=== PATIENT | female | born 1990 | race African-American/Black ===

== ENCOUNTER 2019-08-05 06:39 | Emergency (ER) | payer MEDICAID ==
[~2019-08-05] VITALS: Ht 165.1 cm; Wt 86.2 kg
--- NOTE | 2019-08-05 06:42 | NUR ---
ED Nurse Note: Pt brought in by RA 826 from home pt c/o10/10 pain since 2pm yesterday, N/V x3 episodes. pt has hx of fibroids and cysts, denies spotting at this time. Pt is A&Ox4,VSS, pt placed on monitor worker
[2019-08-05 06:46] VITALS: BP 142/90
--- NOTE | 2019-08-05 06:56 | NUR ---
ED Nurse Note: Blood and urine sent to lab
[2019-08-05] MEDS ORDERED: Morphine Sulfate 4mg/ml Inj (IV USE ONLY) IVP ONE (07:00)
--- NOTE | 2019-08-05 07:01 | Emergency Room Report ---
History of Present Illness General Chief Complaint: Abdominal Pain Source: Patient Present Illness HPI 28-year-old female presents ED for evaluation. Brought in by EMS from home for abdominal pain. Pain started yesterday. Sharp, cramping, 8 out of 10, nonradiating. Notes multiple episodes of nausea and vomiting. Denies any diarrhea. Denies any vaginal bleeding or discharge. States she has been having this similar pain for the last few months. Told that she has fibroids. Told her she had an ovarian cyst on last ER visit. Currently awaiting referral to [facility]. Denies fevers or chills. No other aggravating relieving factors. Denies any other associated symptoms Allergies: Coded Allergies: No Known Allergies (Unverified , 08/05/19) COVID-19 Screening Contact w/high risk pt: No Recent Travel to affected area: No Experienced COVID-19 symptoms?: No COVID-19 Testing performed EXPANDED FUNCTION DENTAL ASSISTANT: No Patient History Past Medical History: other (fibroids) Past Surgical History: none Pertinent Family History: none Social History: Denies: smoking, alcohol use, drug use Now: No Immunizations: UTD Reviewed Nursing Documentation: PMH: Agreed; PSxH: Agreed Review of Systems All Other Systems: negative except mentioned in HPI Physical Exam Vital Signs Date Time Temp Pulse Resp B/P (MAP) Pulse Ox O2 Delivery O2 Flow Rate FiO2 08/05/19 06:34 97.9 86 18 142/90 (107) 100 Room Air Sp02 EP Interpretation: reviewed, normal General Appearance: alert, GCS 15, non-toxic, mild distress, obese Head: normocephalic, atraumatic Eyes: bilateral eye normal inspection, bilateral eye PERRL ENT: hearing grossly normal, normal pharynx, no angioedema, normal voice Neck: full range of motion, supple/symm/no masses Respiratory: chest non-tender, lungs clear, normal breath sounds, speaking full sentences Cardiovascular #1: regular rate, rhythm, no edema Cardiovascular #2: 2+ carotid (R), 2+ carotid (L), 2+ radial (R), 2+ radial (L) , 2+ dorsalis pedis (R), 2+ dorsalis pedis (L) Gastrointestinal: normal bowel sounds, soft, non-distended, no guarding, no rebound, tenderness (suprapubic) Rectal: deferred Genitourinary: normal inspection, no CVA tenderness Musculoskeletal: back normal, normal range of motion, gait/station normal, non- tender Neurologic: alert, motor strength/tone normal, oriented x3, sensory intact, responsive, speech normal Psychiatric: judgement/insight normal, memory normal, mood/affect normal, no suicidal/homicidal ideation Reflexes: 3+ bicep (R), 3+ bicep (L), 3+ tricep (R), 3+ tricep (L), 3+ knee (R) , 3+ knee (L) Skin: no rash Lymphatic: no adenopathy Medical Decision Making Diagnostic Impression: Primary Impression: Ovarian cyst Qualified Codes: N83.201 - Unspecified ovarian cyst, right side Additional Impression: Fibroids ER Course Hospital Course 28-year-old female presents to ED complaining of lower abdominal pain Differential diagnoses include: gastrits, gastroenterits, ectopic , ovarian torsion/cyst, UTI Clinical course Patient placed on stretcher in ED. After initial history and physical I ordered labs, IV fluids and pain meds and pelvic ultrasound. Labs-no leukocytosis, electrolytes okay, beta hCG negative, UA negative Pelvic ultrasound- left sided fibroid, R ovarian cyst Discussed findings with the patient. On reassessment pain improved. Will discharge home. Will provide women's health referrals. Safe for discharge for close outpatient follow-up. Diagnosis - fibroids, ovarian cyst Stable and discharged to home with Rx MOtrin, zofran. Followup with PMD/OB/ DIRECTOR [place]. Return to ED if symptoms recur or worsen Labs Test 08/05/19 06:50 White Blood Count 9.0 K/UL (4.8-10.8) Red Blood Count 4.83 M/UL (4.20-5.40) Hemoglobin 13.6 G/DL (12.0-16.0) Hematocrit 40.0 % (37.0-47.0) Mean Corpuscular Volume 83 FL (80-99) Mean Corpuscular Hemoglobin 28.2 PG (27.0-31.0) Mean Corpuscular Hemoglobin Concent 34.1 G/DL (32.0-36.0) Red Cell Distribution Width 12.4 % (11.6-14.8) Platelet Count 344 K/UL (150-450) Mean Platelet Volume 6.2 FL (6.5-10.1) Neutrophils (%) (Auto) 61.3 % (45.0-75.0) Lymphocytes (%) (Auto) 28.7 % (20.0-45.0) Monocytes (%) (Auto) 7.9 % (1.0-10.0) Eosinophils (%) (Auto) 0.7 % (0.0-3.0) Basophils (%) (Auto) 1.4 % (0.0-2.0) Urine Color Pale yellow Urine Appearance Clear Urine pH 5 (4.5-8.0) Urine Specific [place] 1.020 (1.005-1.035) Urine Protein 1+ (NEGATIVE) Urine Glucose (UA) Negative (NEGATIVE) Urine Ketones Negative (NEGATIVE) Urine Blood Negative (NEGATIVE) Urine Nitrite Negative (NEGATIVE) Urine Bilirubin Negative (NEGATIVE) Urine Urobilinogen Normal MG/DL (0.0-1.0) Urine Leukocyte Esterase Negative (NEGATIVE) Urine RBC 2-4 /HPF (0 - 2) Urine WBC 2-4 /HPF (0 - 2) Urine Squamous Epithelial Cells Many /LPF (NONE/OCC) Urine Bacteria Few /HPF (NONE) Urine HCG, Qualitative Negative (NEGATIVE) Sodium Level 143 MMOL/L (136-145) Potassium Level 3.8 MMOL/L (3.5-5.1) Chloride Level 105 MMOL/L (98-107) Carbon Dioxide Level 30 MMOL/L (21-32) Anion Gap 8 mmol/L (5-15) Blood Urea Nitrogen 5 mg/dL (7-18) Creatinine 0.9 MG/DL (0.55-1.30) Estimat Glomerular Filtration Rate > 60 mL/min (>60) Glucose Level 102 MG/DL (74-106) Calcium Level 9.2 MG/DL (8.5-10.1) Total Bilirubin 0.5 MG/DL (0.2-1.0) Aspartate Amino Transf (AST/SGOT) 15 U/L (15-37) Alanine Aminotransferase (ALT/SGPT) 18 U/L (12-78) Alkaline Phosphatase 60 U/L (46-116) Total Protein 8.5 G/DL (6.4-8.2) Albumin 3.8 G/DL (3.4-5.0) Globulin 4.7 g/dL Albumin/Globulin Ratio 0.8 (1.0-2.7) Lipase 122 U/L (73-393) CT/MRI/US Diagnostic Results CT/MRI/US Diagnostic Results : Imaging Test Ordered: Pelvic US Impression Procedure: US Pelvic Transabdominal EXAM: US Pelvic Transabdominal CLINICAL HISTORY: Abdominal pelvic pain. COMPARISON: None TECHNIQUE: Ultrasound examination of the pelvis includes grayscale images, and color and spectral doppler analysis. FINDINGS: Transabdominal and transvaginal technique utilized. The uterus measures 8.8 x 7.5 x 4.4 cm. Myometrium is heterogeneous. There is a dominant fibroid along the left lateral margin of the uterus estimated at 4 x 2.9 cm. Endometrial stripe is 3 mm. A few small nabothian cysts noted. Right ovary measure 4.7 x 4.3 cm with a simple cyst. Left ovary measures 3 x 2.5 cm. Normal vascular flow seen bilaterally.. There is no free fluid. IMPRESSION: LEFT LATERAL MARGIN UTERINE FIBROID. SIMPLE RIGHT OVARIAN CYST. Last Vital Signs Date Time Temp Pulse Resp B/P (MAP) Pulse Ox O2 Delivery O2 Flow Rate FiO2 08/05/19 06:46 97.9 86 18 142/90 100 Room Air Status: improved Disposition: HOME, SELF-CARE Condition: Stable Scripts Ondansetron Odt* (ZOFRAN ODT*) 4 Mg Tab.rapdis 4 MG BC EVERY 6 HOURS PRN for Nausea & Vomiting, #20 TAB 0 Refills Prov: Car Branch MD 08/05/19 Ibuprofen* (MOTRIN*) 600 Mg Tablet 600 MG ORAL Q8H PRN for FOR PAIN, #30 TAB 0 Refills Prov: Car Branch MD 08/05/19 Referrals: [facility]ERR[facility] (PCP) Car Branch MD August 05, 2019 07:01
--- NOTE | 2019-08-05 07:03 | NUR ---
HAND-OFF: Report given to BRENDA Naqvi.
[2019-08-05 07:20] LABS: ANION GAP 8 mmol/L (5-15); BASOPHILS % (AUTO) 1.4 % (0.0-2.0); BLOOD UREA NITROGEN 5 mg/dL (7-18); CALCIUM 9.2 MG/DL (8.5-10.1); CARBON DIOXIDE 30 MMOL/L (21-32); CHLORIDE 105 MMOL/L (98-107); CREATININE 0.9 MG/DL (0.55-1.30); EOSINOPHILS % (AUTO) 0.7 % (0.0-3.0); HEMOGLOBIN 13.6 G/DL (12.0-16.0); LYMPHOCYTES % (AUTO) 28.7 % (20.0-45.0); MEAN CORPUSCULAR VOLUME 83 FL (80-99); MONOCYTES % (AUTO) 7.9 % (1.0-10.0); NEUTROPHILS % (AUTO) 61.3 % (45.0-75.0); PLATELET COUNT 344 K/UL (150-450); POTASSIUM 3.8 MMOL/L (3.5-5.1); RED BLOOD COUNT 4.83 M/UL (4.20-5.40); RED CELL DISTRIBUTION WIDTH 12.4 % (11.6-14.8); SODIUM 143 MMOL/L (136-145)
--- NOTE | 2019-08-05 07:22 | NUR ---
ED Nurse Note: Received report from BRENDA Amos. Pt lying in bed having abdominal pain. A+Ox4. Respirations even and unlabored on room air. Vitals stable as documented. Pt awaiting US.
[2019-08-05 07:25] LABS: ALANINE AMINOTRANSFERASE 18 U/L (12-78); ALBUMIN 3.8 G/DL (3.4-5.0); ALBUMIN/GLOBULIN RATIO 0.8 (1.0-2.7); ALKALINE PHOSPHATASE 60 U/L (46-116); APPEARANCE,URINE CLEAR; ASPARTATE AMINO TRANSFERASE 15 U/L (15-37); BILIRUBIN, URINE NEGATIVE (NEGATIVE); BILIRUBIN,TOTAL 0.5 MG/DL (0.2-1.0); COLOR,URINE PALE YELLOW; GLUCOSE, URINE (UA) NEGATIVE (NEGATIVE); KETONES,URINE NEGATIVE (NEGATIVE); LEUKOCYTE ESTERASE ,URINE NEGATIVE (NEGATIVE); NITRITE,URINE NEGATIVE (NEGATIVE); PH,URINE 5 (4.5-8.0); PROTEIN,URINE 1+ (NEGATIVE); UROBILINOGEN,URINE NORMAL MG/DL (0.0-1.0)
--- NOTE | 2019-08-05 08:42 | Diagnostic Imaging Report ---
EXAM: US Pelvic Transabdominal CLINICAL HISTORY: Abdominal pelvic pain. COMPARISON: None TECHNIQUE: Ultrasound examination of the pelvis includes grayscale images, and color and spectral doppler analysis. FINDINGS: Transabdominal and transvaginal technique utilized. The uterus measures 8.8 x 7.5 x 4.4 cm. Myometrium is heterogeneous. There is a dominant fibroid along the left lateral margin of the uterus estimated at 4 x 2.9 cm. Endometrial stripe is 3 mm. A few small nabothian cysts noted. Right ovary measure 4.7 x 4.3 cm with a simple cyst. Left ovary measures 3 x 2.5 cm. Normal vascular flow seen bilaterally.. There is no free fluid. IMPRESSION: LEFT LATERAL MARGIN UTERINE FIBROID. SIMPLE RIGHT OVARIAN CYST.
[2019-08-05] MEDS ORDERED: ONDANSETRON ODT4 MG BC (09:16)
[2019-08-05] MEDS ORDERED: IBUPROFEN600 M1 ORAL (09:16)
[2019-08-05 09:22] VITALS: BP 146/88
--- NOTE | 2019-08-05 09:22 | NUR ---
ER DISCHARGE NOTE: Patient is cleared to be discharged per ERMD, pt is aox4, on room air, with stable vital signs. pt was given dc and prescription instructions, pt was able to verbalize understanding, pt id band and iv site removed without complications. pt is able to ambulate with steady gait. pt took all belongings.
== END 2019-08-05 09:22 | disposition home or self-care (01) ==
LOC: EDBD 06:39 → EMR 06:50
DX: N83.201 Unspecified ovarian cyst, right side (principal); D25.9 Leiomyoma of uterus, unspecified; E66.9 Obesity, unspecified; Z68.31 Body mass index [BMI] 31.0-31.9, adult
CPT/HCPCS: 36415; 76830; 76856; 80053; 81003; 81025; 83690; 85025; 96361; 96374; 96375; J2270; J2405; J7030; S0028; Z7502; 99284

== ENCOUNTER 2019-08-07 03:58 | Emergency (ER) | payer MEDICAID ==
[~2019-08-07] VITALS: Ht 170.2 cm; Wt 136.1 kg
[~2019-08-07 03:58] MED LIST: IBUPROFEN600 M1 ORAL; ONDANSETRON ODT4 MG BC
[2019-08-07 04:15] LABS: BASOPHILS % (AUTO) 0.7 % (0.0-2.0); HEMATOCRIT 43.6 % (37.0-47.0); HEMOGLOBIN 14.9 G/DL (12.0-16.0); LYMPHOCYTES % (AUTO) 15.1 % (20.0-45.0); MEAN CORPUSCULAR VOLUME 82 FL (80-99); MONOCYTES % (AUTO) 4.2 % (1.0-10.0); NEUTROPHILS % (AUTO) 80.1 % (45.0-75.0); PLATELET COUNT 368 K/UL (150-450); RED BLOOD COUNT 5.31 M/UL (4.20-5.40); RED CELL DISTRIBUTION WIDTH 12.4 % (11.6-14.8); WHITE BLOOD COUNT 13.3 K/UL (4.8-10.8)
[2019-08-07] MEDS ORDERED: DiphenhydrAMINE 50mg/ml Inj IVP ONE (04:15)
[2019-08-07] MEDS ORDERED: Morphine Sulfate 2mg/ml Inj(IV/IM USE ONLY) IVP ONE ×2 (04:15→06:15)
[2019-08-07] MEDS ORDERED: Metoclopramide 10mg/2ml Inj IVP ONE ×2 (04:15→06:00)
[2019-08-07] MEDS ORDERED: Ketorolac 30mg Inj IV ONE (04:15)
[2019-08-07 04:25] LABS: ANION GAP 15 mmol/L (5-15); BLOOD UREA NITROGEN 9 mg/dL (7-18); CALCIUM 9.5 MG/DL (8.5-10.1); CARBON DIOXIDE 25 MMOL/L (21-32); CHLORIDE 98 MMOL/L (98-107); POTASSIUM 3.2 MMOL/L (3.5-5.1); SODIUM 137 MMOL/L (136-145)
[2019-08-07 04:27] LABS: INR 1.1 (0.9-1.1)
[2019-08-07 04:30] LABS: ALANINE AMINOTRANSFERASE 18 U/L (12-78); ALBUMIN 4.2 G/DL (3.4-5.0); ALBUMIN/GLOBULIN RATIO 0.9 (1.0-2.7); ALKALINE PHOSPHATASE 74 U/L (46-116); ASPARTATE AMINO TRANSFERASE 17 U/L (15-37); BILIRUBIN,TOTAL 0.6 MG/DL (0.2-1.0)
--- NOTE | 2019-08-07 04:30 | Emergency Room Report ---
History of Present Illness General Chief Complaint: Abdominal Pain Source: Patient, EMS Present Illness HPI Patient presents via EMS with abdominal pain. She was seen a few days ago for the same complaint. She has a diagnosis of fibroids. Her last period was either the 10th of the of this month and normal for her. She is not complaining about increased bleeding at this time but she has pain. She feels feverish without documented tactile temperature. She was vomiting yesterday and unable to keep down pain medication. She been taking ibuprofen and yesterday she took some Tylenol compound but made her feel nauseated. She has mild dysuria at this time. She was seen by her SENIOR ELECTRONICS DESIGN ENGINEER and given a appointment for surgery however this was canceled. She is trying to take care of her 4-year -old at home but needed to come in because the pain was out of control tonight. She is not been eating very well and not been taking fluids in well. She states her blood pressure has been out of control. No sore throat, chest pain, palpitations, diarrhea, shortness of breath, joint pain, rashes, depression, anxiety, visual changes, dizziness, headache. Ultrasound done 08/04: FINDINGS: Transabdominal and transvaginal technique utilized. The uterus measures 8.8 x 7.5 x 4.4 cm. Myometrium is heterogeneous. There is a dominant fibroid along the left lateral margin of the uterus estimated at 4 x 2.9 cm. Endometrial stripe is 3 mm. A few small nabothian cysts noted. Right ovary measure 4.7 x 4.3 cm with a simple cyst. Left ovary measures 3 x 2.5 cm. Normal vascular flow seen bilaterally.. There is no free fluid. IMPRESSION: LEFT LATERAL MARGIN UTERINE FIBROID. SIMPLE RIGHT OVARIAN CYST. Allergies: Coded Allergies: No Known Allergies (Unverified , 08/05/19) COVID-19 Screening Contact w/high risk pt: No Recent Travel to affected area: No Experienced COVID-19 symptoms?: No COVID-19 Testing performed RAILCAR BRAKE OPERATOR: No Patient History Past Medical History: see triage record, old chart reviewed Social History: Denies: smoking Social History Narrative 6 yo at home Now: No Reviewed Nursing Documentation: PMH: Agreed; PSxH: Agreed Review of Systems All Other Systems: negative except mentioned in HPI Physical Exam Vital Signs Date Time Temp Pulse Resp B/P (MAP) Pulse Ox O2 Delivery O2 Flow Rate FiO2 08/07/19 03:59 98.1 92 18 174/100 (124) 92 Room Air General Appearance: GCS 15, non-toxic, mild distress, obese Head: normocephalic, atraumatic Eyes: bilateral eye normal inspection, bilateral eye PERRL, bilateral eye EOMI ENT: moist mucus membranes Neck: supple Respiratory: normal inspection Cardiovascular #1: regular rate, rhythm, no edema Cardiovascular #2: 2+ radial (R) Gastrointestinal: no guarding, no rebound, tenderness - suprapubic, overweight Genitourinary: no CVA tenderness, deferred - as recent exam by Drafter Geological Musculoskeletal: back normal, normal range of motion, gait/station normal Neurologic: oriented x3, cerebellar normal, speech normal, grossly normal Psychiatric: anxious - in pain Skin: no rash, warm/dry, other - no pallor Medical Decision Making Diagnostic Impression: Primary Impression: Fibroids Additional Impression: Labile hypertension ER Course Patient presents with suprapubic pain with known history of fibroids. Differential includes fibroid, UTI, appendicitis amongst others. Patient evaluated with labs. Patient treated with IV hydration and Reglan, Benadryl and Toradol along with a small dose of morphine. Pain improved. Still nausea. Slight leukocytosis. Labs otherwise unremarkable. BP higher. (Patient states doctor noted higher blood pressure and consider medications but no medications have been started.) Zofran tx. Await UA. Patient again in distress c/o nausea and pain. Morphine repeated. UA clear. Pain and nausea resolved. Blood pressure normal. Discussed treatment plan with patient. No emergent condition at this time. Patient stable for outpatient observation and treatment. Laboratory Tests Test 08/07/19 04:02 08/07/19 05:33 White Blood Count 13.3 K/UL (4.8-10.8) H Red Blood Count 5.31 M/UL (4.20-5.40) Hemoglobin 14.9 G/DL (12.0-16.0) Hematocrit 43.6 % (37.0-47.0) Mean Corpuscular Volume 82 FL (80-99) Mean Corpuscular Hemoglobin 28.0 PG (27.0-31.0) Mean Corpuscular Hemoglobin Concent 34.1 G/DL (32.0-36.0) Red Cell Distribution Width 12.4 % (11.6-14.8) Platelet Count 368 K/UL (150-450) Mean Platelet Volume 6.4 FL (6.5-10.1) L Neutrophils (%) (Auto) 80.1 % (45.0-75.0) H Lymphocytes (%) (Auto) 15.1 % (20.0-45.0) L Monocytes (%) (Auto) 4.2 % (1.0-10.0) Eosinophils (%) (Auto) 0.0 % (0.0-3.0) Basophils (%) (Auto) 0.7 % (0.0-2.0) Prothrombin Time 11.9 SEC (9.30-11.50) H Prothrombin Time INR 1.1 (0.9-1.1) Activated Partial Thromboplast Time 26 SEC (23-33) Sodium Level 137 MMOL/L (136-145) Potassium Level 3.2 MMOL/L (3.5-5.1) L Chloride Level 98 MMOL/L (98-107) Carbon Dioxide Level 25 MMOL/L (21-32) Anion Gap 15 mmol/L (5-15) Blood Urea Nitrogen 9 mg/dL (7-18) Creatinine 1.0 MG/DL (0.55-1.30) Estimated Glomerular Filtration Rate > 60 mL/min (>60) Glucose Level 138 MG/DL (74-106) H Calcium Level 9.5 MG/DL (8.5-10.1) Total Bilirubin 0.6 MG/DL (0.2-1.0) Aspartate Amino Transferase (AST) 17 U/L (15-37) Alanine Aminotransferase (ALT) 18 U/L (12-78) Alkaline Phosphatase 74 U/L (46-116) Total Protein 9.0 G/DL (6.4-8.2) H Albumin 4.2 G/DL (3.4-5.0) Globulin 4.8 g/dL Albumin/Globulin Ratio 0.9 (1.0-2.7) L Lipase 269 U/L (73-393) Human Chorionic Gonadotropin, Qual Negative (NEGATIVE) Urine Color Pale yellow Urine Appearance Clear Urine pH 6 (4.5-8.0) Urine Specific [place] 1.015 (1.005-1.035) Urine Protein 2+ (NEGATIVE) H Urine Glucose (UA) Negative (NEGATIVE) Urine Ketones 4+ (NEGATIVE) H Urine Blood Negative (NEGATIVE) Urine Nitrite Negative (NEGATIVE) Urine Bilirubin Negative (NEGATIVE) Urine Urobilinogen Normal MG/DL (0.0-1.0) Urine Leukocyte Esterase 1+ (NEGATIVE) H Urine RBC 0-2 /HPF (0 - 2) Urine WBC 0-2 /HPF (0 - 2) Urine Squamous Epithelial Cells Moderate /LPF (NONE/OCC) H Urine Bacteria Few /HPF (NONE) Rhythm Strip Diag. Results EP Interpretation: yes Rhythm: no PVC's, no ectopy, other - Variable tachycardia CT/MRI/US Diagnostic Results CT/MRI/US Diagnostic Results : Imaging Test Ordered: Pelvic ultrasound reviewed from August 04 Impression See reconsults recorded in history Last Vital Signs Date Time Temp Pulse Resp B/P (MAP) Pulse Ox O2 Delivery O2 Flow Rate FiO2 08/07/19 06:39 98.1 93 16 129/77 100 Room Air Status: improved Disposition: HOME, SELF-CARE Condition: Improved Scripts Ondansetron Odt* (ZOFRAN ODT*) 4 Mg Tab.rapdis 4 MG BC EVERY 8 HOURS PRN for Nausea & Vomiting, #10 TAB 1 Refill Prov: Mango Lindo MD 08/07/19 Tramadol Hcl* (ULTRAM*) 50 Mg Tablet 50 MG ORAL Q6H PRN for For Pain, #8 TAB 0 Refills Prov: Mango Lindo MD 08/07/19 Acetaminophen (Tylenol) 325 Mg Tablet 650 MG ORAL Q6H PRN for Prn Pain/Headache/Temp > 101, #20 TAB 0 Refills Prov: Mango Lindo MD 08/07/19 Referrals: [facility] (PCP) Mango Lindo MD August 07, 2019 04:30
[2019-08-07 04:34] VITALS: BP 190/119
[2019-08-07 05:17] VITALS: BP 194/117
[2019-08-07] MEDS ORDERED: TRAMADOL HCL50 MG ORAL (05:31)
[2019-08-07] MEDS ORDERED: ONDANSETRON ODT4 MG BC (05:31)
[2019-08-07] MEDS ORDERED: TYLENOL325 MG ORAL (05:31)
[2019-08-07 05:41] LABS: APPEARANCE,URINE CLEAR; BILIRUBIN, URINE NEGATIVE (NEGATIVE); COLOR,URINE PALE YELLOW; GLUCOSE, URINE (UA) NEGATIVE (NEGATIVE); KETONES,URINE 4+ (NEGATIVE); LEUKOCYTE ESTERASE ,URINE 1+ (NEGATIVE); NITRITE,URINE NEGATIVE (NEGATIVE); PH,URINE 6 (4.5-8.0); PROTEIN,URINE 2+ (NEGATIVE); UROBILINOGEN,URINE NORMAL MG/DL (0.0-1.0)
[2019-08-07] MEDS ORDERED: Morphine Sulfate 2mg/ml Inj(IV/IM USE ONLY) ONE (06:05)
[2019-08-07 06:12] VITALS: BP 172/89
[2019-08-07 06:34] VITALS: BP 129/77
[2019-08-07 06:39] VITALS: BP 129/77
== END 2019-08-07 06:39 | disposition home or self-care (01) ==
LOC: EDBD 03:58 → EMR 04:09
DX: D25.9 Leiomyoma of uterus, unspecified (principal); N83.291 Other ovarian cyst, right side; R03.0 Elevated blood-pressure reading, without diagnosis of hypertension
CPT/HCPCS: 36415; 80053; 81003; 83690; 84703; 85025; 85610; 85730; 96361; 96374; 96375; 96376; J1200; J1885; J2270; J2405; J2765; J7030; Z7502; 99284

== ENCOUNTER 2019-11-12 07:40 | Emergency (ER) | payer MEDICAID ==
[~2019-11-12] VITALS: Ht 167.6 cm; Wt 148.3 kg
--- NOTE | 2019-11-12 07:38 | NUR ---
ED Nurse Note: Pt brought in by ambulance from home c/o abd pain with nausea that has become increasingly worse over two days. Pt denies vomiting/diarrhea. Pt has hx of endometriosis, currently on her menses. Respirations even and unlabored on room air. HR elevated @ 105. BP 150s systolic. All other vitals stable as documented. A+Ox4, crying d/t pain.
--- NOTE | 2019-11-12 07:39 | Emergency Room Report ---
History of Present Illness General Source: Patient, EMS Present Illness HPI Patient is a 29-year-old female brought in by EMS after increased abdominal pain. Prior history of ovarian cyst as well as endometriosis. Patient states she is currently on her menses. Patient had some worsening pain today. Had previous emergency department visits and had previous ultrasound imaging which showed simple ovarian cyst as well as myometrial irregularity and fibroid uterus. Allergies: Coded Allergies: No Known Allergies (Unverified , 08/05/19) Patient History Reviewed Nursing Documentation: PMH: Agreed; PSxH: Agreed Physical Exam Sp02 EP Interpretation: reviewed, normal General Appearance: normal inspection, well appearing, no apparent distress, alert, GCS 15, obese Head: atraumatic ENT: normal ENT inspection, hearing grossly normal, normal voice Neck: normal inspection, full range of motion, supple, no bony tend Respiratory: normal inspection, lungs clear, normal breath sounds, no respiratory distress, no retraction, no wheezing Cardiovascular #1: regular rate, rhythm, no edema Gastrointestinal: normal inspection, normal bowel sounds, non tender, soft, no guarding, no hernia Genitourinary: no CVA tenderness Musculoskeletal: normal inspection, back normal, normal range of motion Neurologic: alert, motor strength/tone normal, technical implementation lead III-XII nml as tested, oriented x3, responsive, speech normal, normal inspection Psychiatric: normal inspection, judgement/insight normal, mood/affect normal Medical Decision Making Diagnostic Impression: Primary Impression: Fibroids Additional Impression: Ovarian cyst ER Course Patient presented for left-sided abdominal pain. Differential diagnosis include was not limited to ovarian torsion, ovarian cyst, fibroid degeneration, pelvic inflammatory disease among others. Because of complexity of patient's case laboratory tests and imaging studies were ordered. Patient reports having similar symptoms in the past and is currently on her menses. pelvic ultrasound showed no evidence of free fluid with small right-sided ovarian cyst. Fibroid uterus. Patient given pain medications as well as IV fluids. She appears to be stable for outpatient management. Patient is given prescription for medication for pain. She is advised to follow-up with her ELECTRICAL INSTRUMENTATION TECHNICIAN and patient states that she has an appointment this week. Advised to return if worse. this medical record is generated with [employer] director software. There may be some director discrepancies related to use of this software Labs Test 11/12/19 08:00 11/12/19 08:58 White Blood Count 8.3 K/UL (4.8-10.8) Red Blood Count 4.46 M/UL (4.20-5.40) Hemoglobin 12.4 G/DL (12.0-16.0) Hematocrit 38.9 % (37.0-47.0) Mean Corpuscular Volume 87 FL (80-99) Mean Corpuscular Hemoglobin 27.9 PG (27.0-31.0) Mean Corpuscular Hemoglobin Concent 31.9 G/DL (32.0-36.0) Red Cell Distribution Width 13.5 % (11.6-14.8) Platelet Count 299 K/UL (150-450) Mean Platelet Volume 6.4 FL (6.5-10.1) Neutrophils (%) (Auto) 60.9 % (45.0-75.0) Lymphocytes (%) (Auto) 29.7 % (20.0-45.0) Monocytes (%) (Auto) 6.5 % (1.0-10.0) Eosinophils (%) (Auto) 0.6 % (0.0-3.0) Basophils (%) (Auto) 2.3 % (0.0-2.0) Sodium Level 140 MMOL/L (136-145) Potassium Level 4.0 MMOL/L (3.5-5.1) Chloride Level 105 MMOL/L (98-107) Carbon Dioxide Level 26 MMOL/L (21-32) Anion Gap 9 mmol/L (5-15) Blood Urea Nitrogen 7 mg/dL (7-18) Creatinine 0.8 MG/DL (0.55-1.30) Estimat Glomerular Filtration Rate > 60 mL/min (>60) Glucose Level 94 MG/DL (74-106) Calcium Level 8.6 MG/DL (8.5-10.1) Total Bilirubin 0.3 MG/DL (0.2-1.0) Aspartate Amino Transf (AST/SGOT) 13 U/L (15-37) Alanine Aminotransferase (ALT/SGPT) 12 U/L (12-78) Alkaline Phosphatase 64 U/L (46-116) Total Protein 7.7 G/DL (6.4-8.2) Albumin 3.3 G/DL (3.4-5.0) Globulin 4.4 g/dL Albumin/Globulin Ratio 0.8 (1.0-2.7) Lipase 115 U/L (73-393) Status: improved Disposition: HOME, SELF-CARE Condition: Stable Kris Hampton MD Nov 12, 2019 07:39
[2019-11-12 07:40] VITALS: BP 155/88
[~2019-11-12 07:40] MED LIST changes: +TRAMADOL HCL50 MG ORAL; +TYLENOL325 MG ORAL
[2019-11-12] MEDS ORDERED: Morphine Sulfate 4mg/ml Inj (IV USE ONLY) IVP ONE (07:45)
[2019-11-12] MEDS ORDERED: Ketorolac 30mg Inj IV ONE (07:45)
[2019-11-12] MEDS ORDERED: Metoclopramide 10mg/2ml Inj IVP ONE (07:45)
--- NOTE | 2019-11-12 08:07 | NUR ---
ED Nurse Note: blood sent to lab
--- NOTE | 2019-11-12 08:11 | NUR ---
ED Nurse Note: US @ bedside
[2019-11-12 08:35] LABS: BASOPHILS % (AUTO) 2.3 % (0.0-2.0); EOSINOPHILS % (AUTO) 0.6 % (0.0-3.0); HEMATOCRIT 38.9 % (37.0-47.0); HEMOGLOBIN 12.4 G/DL (12.0-16.0); LYMPHOCYTES % (AUTO) 29.7 % (20.0-45.0); MEAN CORPUSCULAR VOLUME 87 FL (80-99); MONOCYTES % (AUTO) 6.5 % (1.0-10.0); NEUTROPHILS % (AUTO) 60.9 % (45.0-75.0); PLATELET COUNT 299 K/UL (150-450); RED BLOOD COUNT 4.46 M/UL (4.20-5.40); RED CELL DISTRIBUTION WIDTH 13.5 % (11.6-14.8); WHITE BLOOD COUNT 8.3 K/UL (4.8-10.8)
[2019-11-12 08:48] LABS: ANION GAP 9 mmol/L (5-15); BLOOD UREA NITROGEN 7 mg/dL (7-18); CALCIUM 8.6 MG/DL (8.5-10.1); CARBON DIOXIDE 26 MMOL/L (21-32); CHLORIDE 105 MMOL/L (98-107); CREATININE 0.8 MG/DL (0.55-1.30); SODIUM 140 MMOL/L (136-145)
[2019-11-12 08:52] LABS: ALANINE AMINOTRANSFERASE 12 U/L (12-78); ALBUMIN 3.3 G/DL (3.4-5.0); ALBUMIN/GLOBULIN RATIO 0.8 (1.0-2.7); ALKALINE PHOSPHATASE 64 U/L (46-116); ASPARTATE AMINO TRANSFERASE 13 U/L (15-37); BILIRUBIN,TOTAL 0.3 MG/DL (0.2-1.0)
--- NOTE | 2019-11-12 09:01 | NUR ---
ED Nurse urine sent to lab
[2019-11-12 09:18] LABS: APPEARANCE,URINE SLIGHTLY CLOUDY; COLOR,URINE AMBER; PH,URINE 6 (4.5-8.0)
[2019-11-12 09:19] LABS: BILIRUBIN, URINE NEGATIVE (NEGATIVE); GLUCOSE, URINE (UA) NEGATIVE (NEGATIVE); KETONES,URINE NEGATIVE (NEGATIVE); LEUKOCYTE ESTERASE ,URINE 2+ (NEGATIVE); NITRITE,URINE NEGATIVE (NEGATIVE); PROTEIN,URINE 2+ (NEGATIVE); UROBILINOGEN,URINE NORMAL MG/DL (0.0-1.0)
[2019-11-12 09:20] VITALS: BP 149/95
--- NOTE | 2019-11-12 09:24 | Diagnostic Imaging Report ---
EXAM: US Pelvic Transabdominal CLINICAL HISTORY: Abdominal/pelvic pain. Patient is REPORTEDLY not (pending test at time of exam) COMPARISON: 08/05/2019 TECHNIQUE: Ultrasound examination of the pelvis includes grayscale images, and color and spectral doppler analysis. Note that only transabdominal exam was performed. Patient declined/refused endovaginal exam. FINDINGS: Limit evaluation as only transabdominal exam was performed. Patient declined/refused endovaginal exam. Exam is also limited due to patient inability to cooperate with exam positioning. Within these limitations: The uterus measures 8.2 x 7.4 x 4.4 cm/149 mL. Myometrium is heterogeneous with a fibroid noted at the fundus measuring approximately 4 cm. Endometrium measures 3.5 mm in thickness. A simple appearing right ovarian cyst is seen which measures approximately 2 cm. Left ovary is poorly evaluated. Unable to obtain reliable spectral tracing on the ovaries due to patient inability to cooperate with exam positioning. IMPRESSION: Significantly limited exam as only transabdominal scanning was performed and patient reportedly inability to cooperate with exam positioning (reportedly related to pain). Within these limitations: * Heterogeneous myomatous uterus * Simple appearing right ovarian cyst. Unable to obtain spectral/Doppler tracings of the ovaries given exam limitations and therefore cannot reliably assess for the presence or absence of Doppler flow into the ovaries. Please correlate clinically. Consider repeat exam as clinically indicated.
[2019-11-12] MEDS ORDERED: Omnipaque-300 100ml vial INJ PRN (09:45)
[2019-11-12] MEDS ORDERED: Dicyclomine HCl 10mg/5ml oral soln ORAL ONE (09:45)
[2019-11-12] MEDS ORDERED: Morphine Sulfate 2mg/ml Inj(IV/IM USE ONLY) IVP ONE (09:45)
[2019-11-12] MEDS ORDERED: cefTRIAXone 1 GM in NS 55 ML IVPB ONE (10:15)
--- NOTE | 2019-11-12 10:25 | NUR ---
ED Nurse Note: pt sleeping in bed with no signs of distress.
--- NOTE | 2019-11-12 11:17 | Diagnostic Imaging Report ---
Indication: Abdominal and pelvic pain Technique: CT of the abdomen and pelvis utilizing automated exposure control with intravenous contrast. Venous scanning performed. Axial, sagittal and coronal reformats presented. CT dose: Total DLP 1552.4 mGycm; CTDI vol 27.6 mGy Comparison: No prior CT of the abdomen available for comparison Findings: Image lower chest unremarkable. Hepatic contour is smooth. There is some low-attenuation along the falciform ligament suggesting focal fatty infiltration. Otherwise no focal hepatic mass lesion noted on this single phase exam. Portal veins appear patent. There are no CT evident gallstones or pericholecystic inflammatory changes. No biliary ductal dilatation. Spleen, adrenal glands and pancreas unremarkable in appearance. Pancreatic enhancement is uniform. No peripancreatic inflammatory changes or fluid collections. Kidneys enhance symmetrically. There is no urinary tract stone, hydronephrosis or contour deforming renal mass. Apparent bladder wall thickening favored to be related to underdistention. Correlation with urinalysis recommended to exclude cystitis. The uterus is mildly enlarged with heterogeneous and enhancing myometrial masses suggesting fibroids. Largest mass in the left aspect of the myometrium measures approximately 4.4 cm. The endometrium is not well evaluated on CT. There is a low-attenuation right adnexal lesion measuring 2.5 cm suggesting a cyst. Trace fluid is noted in the pelvic cul-de-sac which may be physiologic. No free intraperitoneal air. There is no evidence of small bowel obstruction. The appendix is not definitively visualized however there are no focal inflammatory changes in the right lower quadrant. Abdominal aorta is normal in caliber. There is no pathologically enlarged lymphadenopathy. No acute osseous abnormality. There is a tiny fat-containing umbilical hernia. IMPRESSION: * Heterogeneously enhancing uterine masses suggesting fibroids. Gynecologic follow-up recommended. * 2.5 cm low-attenuation right adnexal lesion most likely representing ovarian cyst. * Trace simple pelvic free fluid noted in the pelvis. This may be physiologic. No evidence of free intraperitoneal air. * Appendix not definitively identified however there are no pericecal inflammatory changes/secondary signs to suggest acute appendicitis. The CT scanner at [facility] is accredited by the [employer] and the scans are performed using protocols designed to limit radiation exposure to as low as reasonably achievable to attain images of sufficient resolution adequate for diagnostic evaluation.
[2019-11-12] MEDS ORDERED: CEPHALEXIN500 MG ORAL (11:19)
[2019-11-12] MEDS ORDERED: NORCO 5-325 TA1 EAC1 ORAL (11:20)
[2019-11-12 11:35] VITALS: BP 145/89
== END 2019-11-12 11:35 | disposition home or self-care (01) ==
LOC: EDBD 07:40 → EMR 07:45
DX: D25.9 Leiomyoma of uterus, unspecified (principal); N85.8 Other specified noninflammatory disorders of uterus
CPT/HCPCS: 36415; 74177; 76856; 80053; 81003; 81025; 83690; 85025; 96365; 96375; 96376; J0696; J1885; J2270; J2765; J7040; Q9965; Z7502; 99284

== ENCOUNTER 2019-11-17 03:33 | Emergency (ER) | payer MEDICAID ==
[~2019-11-17] VITALS: Ht 170.2 cm; Wt 81.6 kg
[~2019-11-17 03:33] MED LIST changes: +CEPHALEXIN500 MG ORAL; +NORCO 5-325 TA1 EAC1 ORAL
--- NOTE | 2019-11-17 03:44 | Emergency Room Report ---
History of Present Illness General Chief Complaint: Abdominal Pain Source: Patient, Medical Record Present Illness HPI This is a 29-year-old female with a history of CVA in the past. She said that she was admitted to [facility] and discharged with a diagnosis of CVA. She did not any medication for. She also has a history of fibroids. Because of her CVA, she is not on control. She presents with chief complaint of pelvic pain. This been ongoing for about 4 days. On and off. She was here 4 to 5 days ago. She had CT scan and ultrasound which showed fibroids and small ovarian cyst. Pain was severe tonight. Is sharp and crampy. 10 out of 10. Localized to the suprapubic area. No fever chills. No nausea no vomiting. Nothing made it better. Nothing made it worse. Similar symptom in the past but worse tonight. Allergies: Coded Allergies: No Known Allergies (Unverified , 08/05/19) COVID-19 Screening Contact w/high risk pt: No Recent Travel to affected area: No Experienced COVID-19 symptoms?: No COVID-19 Testing performed DATA ANALYTICS SPECIALIST: No Patient History Past Medical History: see triage record, old chart reviewed, CVA/TIA Past Surgical History: none Pertinent Family History: none Social History: Denies: smoking Now: No Immunizations: other Reviewed Nursing Documentation: PMH: Agreed; PSxH: Agreed Nursing Documentation-PMH Hx Hypertension: Yes Review of Systems Eye: Denies: eye pain, blurred vision ENT: Denies: ear pain, nose congestion, throat swelling Respiratory: Denies: cough, shortness of breath Cardiovascular: Denies: chest pain, palpitations Gastrointestinal: Denies: abdominal pain, diarrhea, nausea, vomiting Genitourinary: Reports: pain Musculoskeletal: Denies: back pain, joint pain Skin: Denies: rash Neurological: Denies: headache, numbness Endocrine: Denies: increased thirst, increased urine Hematologic/Lymphatic: Denies: easy bruising All Other Systems: negative except mentioned in HPI Physical Exam Vital Signs Date Time Temp Pulse Resp B/P (MAP) Pulse Ox O2 Delivery O2 Flow Rate FiO2 11/17/19 03:30 98.8 114 22 148/84 (105) 98 Room Air Vitals unremarkable Sp02 EP Interpretation: reviewed, normal General Appearance: well appearing, no apparent distress, alert, obese Head: normocephalic, atraumatic Eyes: bilateral eye PERRL, bilateral eye EOMI ENT: hearing grossly normal, normal pharynx Neck: full range of motion, supple, no meningismus Respiratory: chest non-tender, lungs clear, normal breath sounds Cardiovascular #1: regular rate, rhythm, no murmur Gastrointestinal: normal bowel sounds, non tender, no mass, no organomegaly, no bruit, non-distended Musculoskeletal: back normal, normal range of motion, gait/station normal Psychiatric: mood/affect normal Medical Decision Making Diagnostic Impression: Primary Impression: Pelvic pain Additional Impression: Fibroids ER Course Patient presents with pelvic pain. This may be secondary to her fibroids. She said usually get pain during her menstruation. She is finishing off on her menstruation. No evidence of acute abdomen. She felt better now. Will discharge home. Last Vital Signs Date Time Temp Pulse Resp B/P (MAP) Pulse Ox O2 Delivery O2 Flow Rate FiO2 11/17/19 03:30 98.8 114 22 148/84 (105) 98 Room Air Status: improved Disposition: HOME, SELF-CARE Condition: Stable Scripts Ibuprofen* (MOTRIN*) 600 Mg Tablet 600 MG ORAL Q6H PRN for For Pain, #30 TAB 0 Refills Prov: Alexis Taveras MD 11/17/19 Oxycodone Hcl/Acetaminophen 10-325* (OXYCODONE-ACETAMINOPHEN 10-325*) 1 Each Tablet 1 TAB ORAL Q6H PRN for For Pain, #20 TAB 0 Refills Prov: Alexis Taveras MD 11/17/19 Additional Instructions: Stop your antibiotics. Follow-up with your doctor in 7 days. 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 Return if symptoms worsen. Alexis Taveras MD Nov 17, 2019 03:44
--- NOTE | 2019-11-17 03:55 | NUR ---
ED Nurse Note: Pt brought in by ambulance from home c/o 12/26 abdominal pain since sat. Pt denies N/V at this time. Pt was seen on fri for the same symptoms. Pt has a hx of fibroids. PT is A&Ox4, VSS. ERMD at bedside
[2019-11-17 03:56] VITALS: BP 148/84
[2019-11-17] MEDS ORDERED: OXYCODONE-ACET1 EAC5 ORAL (04:17)
[2019-11-17] MEDS ORDERED: IBUPROFEN600 M1 ORAL (04:17)
[2019-11-17 05:20] VITALS: BP 134/80
--- NOTE | 2019-11-17 05:20 | NUR ---
ER DISCHARGE NOTE: Patient is cleared to be discharged per ERMD, pt is aox4, on room air, with stable vital signs. pt was given dc and prescription instructions, pt was able to verbalize understanding, pt id band removed. pt is able to ambulate with steady gait. pt took all belongings.
== END 2019-11-17 05:20 | disposition home or self-care (01) ==
LOC: EDBD 03:33 → EMR 03:46
DX: D25.9 Leiomyoma of uterus, unspecified (principal); R10.2 Pelvic and perineal pain; E66.9 Obesity, unspecified; I10 Essential (primary) hypertension; Z86.73 Personal history of transient ischemic attack (TIA), and cerebral infarction without residual deficits; Z68.28 Body mass index [BMI] 28.0-28.9, adult
CPT/HCPCS: 96372; J1170; Z7502; 99283

== ENCOUNTER 2020-02-14 09:43 | Emergency (ER) | payer MEDICAID ==
[~2020-02-14] VITALS: Ht 167.6 cm; Wt 139.7 kg
[~2020-02-14 09:43] MED LIST changes: +OXYCODONE-ACET1 EAC5 ORAL
[2020-02-14] MEDS ORDERED: Ketorolac 30mg Inj IV ONE (10:00)
[2020-02-14] MEDS ORDERED: Metoclopramide 10mg/2ml Inj IVP ONE (10:00)
[2020-02-14] MEDS ORDERED: DiphenhydrAMINE 50mg/ml Inj IVP ONE (10:00)
[2020-02-14 10:12] VITALS: BP 131/78
[2020-02-14 10:15] LABS: BASOPHILS % (AUTO) 1.3 % (0.0-2.0); HEMATOCRIT 40.2 % (37.0-47.0); LYMPHOCYTES % (AUTO) 35.8 % (20.0-45.0); MEAN CORPUSCULAR VOLUME 87 FL (80-99); MONOCYTES % (AUTO) 11.2 % (1.0-10.0); NEUTROPHILS % (AUTO) 50.7 % (45.0-75.0); PLATELET COUNT 302 K/UL (150-450); RED BLOOD COUNT 4.61 M/UL (4.20-5.40); RED CELL DISTRIBUTION WIDTH 14.5 % (11.6-14.8); WHITE BLOOD COUNT 7.5 K/UL (4.8-10.8)
[2020-02-14 10:20] LABS: APPEARANCE,URINE CLEAR; BILIRUBIN, URINE NEGATIVE (NEGATIVE); COLOR,URINE PALE YELLOW; GLUCOSE, URINE (UA) NEGATIVE (NEGATIVE); KETONES,URINE NEGATIVE (NEGATIVE); LEUKOCYTE ESTERASE ,URINE NEGATIVE (NEGATIVE); NITRITE,URINE NEGATIVE (NEGATIVE); PH,URINE 5 (4.5-8.0); PROTEIN,URINE NEGATIVE (NEGATIVE); UROBILINOGEN,URINE NORMAL MG/DL (0.0-1.0)
[2020-02-14 10:47] LABS: ANION GAP 8 mmol/L (5-15); BLOOD UREA NITROGEN 11 mg/dL (7-18); CALCIUM 8.9 MG/DL (8.5-10.1); CARBON DIOXIDE 26 MMOL/L (21-32); CHLORIDE 103 MMOL/L (98-107); POTASSIUM 4.4 MMOL/L (3.5-5.1); SODIUM 137 MMOL/L (136-145)
[2020-02-14 10:52] LABS: ALANINE AMINOTRANSFERASE 10 U/L (12-78); ALBUMIN 3.8 G/DL (3.4-5.0); ALBUMIN/GLOBULIN RATIO 0.9 (1.0-2.7); ALKALINE PHOSPHATASE 58 U/L (46-116); ASPARTATE AMINO TRANSFERASE 16 U/L (15-37); BILIRUBIN,TOTAL 0.3 MG/DL (0.2-1.0)
--- NOTE | 2020-02-14 11:13 | Diagnostic Imaging Report ---
EXAM: US Pelvis Transabdominal and Transvaginal, Complete CLINICAL HISTORY: ABD PAIN TECHNIQUE: Real-time complete transabdominal and transvaginal pelvic ultrasound with image documentation. Transvaginal imaging was used for better evaluation of the endometrium and adnexa. COMPARISON: Ultrasound pelvis on 11/12/2019 FINDINGS: Uterus: Measures 9.4 x 5.2 x 6.5 cm. Uterine fibroid measuring 3.0 x 3. 9 x 3.6 cm. Endometrium measures 6.4 mm. Right ovary: Measures 3.8 x 4.1 x 3.5. Right ovarian cyst measuring 3. 6 x 2.4 x 3.2 cm. Normal color Doppler flow to the right ovary. Left ovary: Measures 3.1 x 1.9 x 2.0 cm. Normal appearance with normal color Doppler flow. Other: No free fluid. No adnexal mass. IMPRESSION: 1. Uterine fibroid measuring up to 3.9 cm. 2. Right ovarian cyst measuring up to 3.6 cm. No ovarian torsion.
--- NOTE | 2020-02-14 11:50 | Emergency Room Report ---
History of Present Illness General Chief Complaint: Abdominal Pain Source: Patient, EMS Present Illness HPI Patient has recurrent abdominal pain. She is recently switched over to ibuprofen and Pepcid. Last night she took oxycodone half tablet. She has been constipated. Pain is in her lower abdomen. She denies any vaginal discharge or dysuria. Her last menstruation was 3 weeks ago and normal for her. Today she had some nausea and vomiting and called paramedics. The pain has been going on for the last 6 days. She rates the pain 10/10 more in the lower abdomen and fairly constant. It is not lateralizing. It does not radiate. She has been constipated and has been taking Dulcolax. She feels has been poorly effective. The patient was recently treated for PID. This feels like this to her. She has had ultrasounds in the past. Its been sometime. She denies fevers or chills at this time. In addition she has ovarian cysts and fibroids. Status post CVA. Patient denies exposure to Covid positive contacts. No sore throat, chest pain, palpitations, diarrhea, dysuria, shortness of breath, joint pain, rashes, depression, anxiety, visual changes, dizziness, headache. Allergies: Coded Allergies: No Known Allergies (Unverified , 08/05/19) COVID-19 Screening Contact w/high risk pt: No Recent Travel to affected area: No Experienced COVID-19 symptoms?: No COVID-19 Testing performed CHART COLLECTOR: No Patient History Past Medical History: see triage record, CVA/TIA Social History: Denies: smoking, alcohol use, drug use Social History Narrative From home Last Menstrual Period: 3 weeks Now: No Reviewed Nursing Documentation: PMH: Agreed; PSxH: Agreed Nursing Documentation-PMH Past Medical History: No History, Except For Hx Hypertension: Yes Hx Cerebrovascular Accident: Yes Review of Systems All Other Systems: negative except mentioned in HPI Physical Exam Vital Signs Date Time Temp Pulse Resp B/P (MAP) Pulse Ox O2 Delivery O2 Flow Rate FiO2 02/14/20 09:37 97.3 89 18 131/79 (96) 98 Room Air Sp02 EP Interpretation: reviewed, normal General Appearance: well appearing, no apparent distress - Right hand pain, GCS 15 Head: normocephalic Eyes: bilateral eye normal inspection, bilateral eye PERRL, bilateral eye EOMI ENT: moist mucus membranes Neck: supple Respiratory: lungs clear, normal breath sounds Cardiovascular #1: regular rate, rhythm Cardiovascular #2: 2+ radial (R) Gastrointestinal: normal inspection, normal bowel sounds, no mass, non- distended, no guarding, no rebound, tenderness - Lower abdomen but also is fairly diffuse Genitourinary: no CVA tenderness, deferred Musculoskeletal: back normal, normal range of motion, gait/station normal Neurologic: alert, oriented x3, grossly normal Psychiatric: mood/affect normal Skin: no rash, warm/dry Medical Decision Making Diagnostic Impression: Primary Impression: Pelvic pain Additional Impression: Constipation Qualified Codes: K59.03 - Drug induced constipation ER Course Patient presents with lower abdominal pain that is worsened over the last 6 days with nausea and vomiting. Differential includes PID, urinary tract infection, fibroids, ovarian cyst, diverticulitis, renal stone amongst others. Patient evaluated with labs and pelvic ultrasound. Patient treated with IV hydration, Reglan, Benadryl and Toradol. She does not believe she is at this time. If she were we would consider ectopic and threatened miscarriage. Based on the ultrasound exam may be considered. At this time the patient denies discharge and is not febrile. Labs with normal white count. test negative. Ultrasound with fibroids. Patient improved with treatment. Discussed findings and treatment plan with patient. Patient was advised to follow-up with her own primary doctor as well as her CORRESPONDENCE SECTION SUPERVISOR. Patient stable for outpatient observation and treatment. Laboratory Tests Test 02/14/20 10:00 White Blood Count 7.5 K/UL (4.8-10.8) Red Blood Count 4.61 M/UL (4.20-5.40) Hemoglobin 13.0 G/DL (12.0-16.0) Hematocrit 40.2 % (37.0-47.0) Mean Corpuscular Volume 87 FL (80-99) Mean Corpuscular Hemoglobin 28.3 PG (27.0-31.0) Mean Corpuscular Hemoglobin Concent 32.4 G/DL (32.0-36.0) Red Cell Distribution Width 14.5 % (11.6-14.8) Platelet Count 302 K/UL (150-450) Mean Platelet Volume 7.6 FL (6.5-10.1) Neutrophils (%) (Auto) 50.7 % (45.0-75.0) Lymphocytes (%) (Auto) 35.8 % (20.0-45.0) Monocytes (%) (Auto) 11.2 % (1.0-10.0) H Eosinophils (%) (Auto) 1.0 % (0.0-3.0) Basophils (%) (Auto) 1.3 % (0.0-2.0) Prothrombin Time 10.8 SEC (9.30-11.50) Prothrombin Time INR 1.0 (0.9-1.1) Activated Partial Thromboplast Time 26 SEC (23-33) Urine Color Pale yellow Urine Appearance Clear Urine pH 5 (4.5-8.0) Urine Specific [place] 1.020 (1.005-1.035) Urine Protein Negative (NEGATIVE) Urine Glucose (UA) Negative (NEGATIVE) Urine Ketones Negative (NEGATIVE) Urine Blood Negative (NEGATIVE) Urine Nitrite Negative (NEGATIVE) Urine Bilirubin Negative (NEGATIVE) Urine Urobilinogen Normal MG/DL (0.0-1.0) Urine Leukocyte Esterase Negative (NEGATIVE) Urine HCG, Qualitative Negative (NEGATIVE) Sodium Level 137 MMOL/L (136-145) Potassium Level 4.4 MMOL/L (3.5-5.1) Chloride Level 103 MMOL/L (98-107) Carbon Dioxide Level 26 MMOL/L (21-32) Anion Gap 8 mmol/L (5-15) Blood Urea Nitrogen 11 mg/dL (7-18) Creatinine 1.0 MG/DL (0.55-1.30) Estimated Glomerular Filtration Rate > 60 mL/min (>60) Glucose Level 84 MG/DL (74-106) Calcium Level 8.9 MG/DL (8.5-10.1) Total Bilirubin 0.3 MG/DL (0.2-1.0) Aspartate Amino Transferase (AST) 16 U/L (15-37) Alanine Aminotransferase (ALT) 10 U/L (12-78) L Alkaline Phosphatase 58 U/L (46-116) Total Protein 8.1 G/DL (6.4-8.2) Albumin 3.8 G/DL (3.4-5.0) Globulin 4.3 g/dL Albumin/Globulin Ratio 0.9 (1.0-2.7) L Lipase 88 U/L (73-393) Chlamydia trachomatis RNA Pending Neisseria gonorrhoeae RNA Pending CT/MRI/US Diagnostic Results CT/MRI/US Diagnostic Results : Imaging Test Ordered: Pelvic ultrasound Impression 1. Uterine fibroid measuring up to 3.9 cm. 2. Right ovarian cyst measuring up to 3.6 cm. No ovarian torsion. Last Vital Signs Date Time Temp Pulse Resp B/P (MAP) Pulse Ox O2 Delivery O2 Flow Rate FiO2 02/14/20 12:06 98.0 85 18 128/72 98 Room Air Status: improved Disposition: HOME, SELF-CARE Condition: Improved Scripts Acetaminophen (Tylenol) 325 Mg Tablet 650 MG ORAL Q6H PRN for Prn Pain/Headache/Temp > 101, #30 TAB 0 Refills Prov: Mango Lindo MD 02/14/20 Ondansetron Odt* (ZOFRAN ODT*) 4 Mg Tab.rapdis 4 MG BC EVERY 8 HOURS, #10 TAB 0 Refills Prov: Mango Lindo MD 02/14/20 Lactulose (LACTULOSE*) 20 Gm/30 Ml Solution 30 ML ORAL BID PRN for Constipation, #240 ML 0 Refills Prov: Mango Lindo MD 02/14/20 Referrals: [facility],REFERR[facility] (PCP) Mango Lindo MD Feb 14, 2020 11:50
[2020-02-14] MEDS ORDERED: LACTULOSE20 GM/301 ORAL ×2 (11:55)
[2020-02-14] MEDS ORDERED: ONDANSETRON ODT4 MG BC ×2 (11:57)
[2020-02-14 12:00] VITALS: BP 128/72
[2020-02-14] MEDS ORDERED: IBUPROFEN600 M1 ORAL (12:00)
[2020-02-14] MEDS ORDERED: FAMOTIDINE20 MG ORAL (12:00)
[2020-02-14 12:06] VITALS: BP 128/72
[2020-02-14] MEDS ORDERED: TYLENOL325 MG ORAL (12:06)
== END 2020-02-14 12:10 | disposition home or self-care (01) ==
LOC: EDBD 09:43 → EMR 09:58
DX: K59.03 Drug induced constipation (principal); R10.2 Pelvic and perineal pain; I10 Essential (primary) hypertension; D25.9 Leiomyoma of uterus, unspecified; N83.201 Unspecified ovarian cyst, right side; Z86.73 Personal history of transient ischemic attack (TIA), and cerebral infarction without residual deficits
CPT/HCPCS: 36415; 76830; 76856; 80053; 81003; 81025; 83690; 85025; 85610; 85730; 87491; 87590; 96361; 96374; 96375; J1200; J1885; J2765; J7030; Z7502; 99284

== ENCOUNTER 2020-02-14 17:44 | Emergency (ER) | payer MEDICAID ==
[~2020-02-14] VITALS: Ht 167.6 cm; Wt 139.7 kg
[~2020-02-14 17:44] MED LIST changes: +FAMOTIDINE20 MG ORAL; +LACTULOSE20 GM/301 ORAL
[2020-02-14 17:51] VITALS: BP 154/102
[2020-02-14] MEDS ORDERED: Morphine Sulfate 4mg/ml Inj (IV USE ONLY) IVP ONE (18:30)
[2020-02-14 19:10] VITALS: BP 152/98
--- NOTE | 2020-02-14 19:35 | Emergency Room Report ---
History of Present Illness General Chief Complaint: Abdominal Pain Source: Patient (Erica Obregon) Present Illness HPI 29-year-old female presents to the emergency department complaining of 10 out of 10 severity lower uterine cramping pain in addition to vomiting. Patient reports that she has a history of fibroids and will intermittently have exacerbations at present in the same fashion. Patient reports she was here this morning and discharged however she states she did not have a ride to the pharmacy normal need to pay for medications. Patient states that she began vomiting again once the initial medications were off. She denies fevers or chills. She denies blood in the vomitus. She denies diarrhea or constipation or black tarry stools. Patient denies vaginal bleeding. She denies vaginal discharge. She reports her main concern is not being able to have medications to get her through the night. (Erica Obregon) Allergies: Coded Allergies: No Known Allergies (Unverified , 08/05/19) COVID-19 Screening Contact w/high risk pt: No Recent Travel to affected area: No Experienced COVID-19 symptoms?: No COVID-19 Testing performed TECHNICAL ILLUSTRATIONS MAP INKER: No (Erica Obregon) Patient History Past Medical History: see triage record Past Surgical History: none Pertinent Family History: none Last Menstrual Period: unk Reviewed Nursing Documentation: PMH: Agreed; PSxH: Agreed (Erica Obregon) Nursing Documentation-PMH Past Medical History: No History, Except For Hx Hypertension: Yes Hx Cerebrovascular Accident: Yes (Erica Obregon) Review of Systems All Other Systems: negative except mentioned in HPI (Erica Obregon) Physical Exam Vital Signs Date Time Temp Pulse Resp B/P (MAP) Pulse Ox O2 Delivery O2 Flow Rate FiO2 02/14/20 17:38 98.4 71 24 158/106 (123) 99 02/14/20 17:51 Room Air 98 Sp02 EP Interpretation: reviewed, normal General Appearance: no apparent distress, alert, GCS 15, non-toxic Head: normocephalic, atraumatic Eyes: bilateral eye normal inspection, bilateral eye PERRL ENT: hearing grossly normal, normal voice, moist mucus membranes Neck: full range of motion Respiratory: lungs clear, normal breath sounds, no wheezing, speaking full sentences Cardiovascular #1: regular rate, rhythm, no edema Gastrointestinal: soft, no guarding, tenderness - mild suprapubic ttp. no adnexal ttp Genitourinary: normal inspection, no CVA tenderness Musculoskeletal: back normal, normal range of motion, gait/station normal, non- tender Neurologic: alert, motor strength/tone normal, oriented x3, sensory intact, responsive, speech normal Psychiatric: judgement/insight normal Skin: no rash, normal color (Erica Obregon) Medical Decision Making PA Attestation Dr. Monzon is my supervising Physician whom patient management has been discussed with. (Erica Obregon) Diagnostic Impression: Primary Impression: Pelvic pain Additional Impressions: Fibroids Ovarian cyst ER Course 29-year-old female presents to the emergency department complaining of 10 out of 10 severity lower uterine cramping pain in addition to vomiting. Patient reports that she has a history of fibroids and will intermittently have exacerbations at present in the same fashion. Patient reports she was here this morning and discharged however she states she did not have a ride to the pharmacy normal need to pay for medications. Patient states that she began vomiting again once the initial medications were off. She denies fevers or c hills. She denies blood in the vomitus. She denies diarrhea or constipation or black tarry stools. Patient denies vaginal bleeding. She denies vaginal discharge. She reports her main concern is not being able to have medications to get her through the night. Ddx considered but are not limited to Diverticulitis, acute appy, diarrhea,UC, PUD, GE, pancreatitis, gallstone, ovarian torsion, dehydration, ectopic , PID tubo-ovarian abscess. Vital signs: are WNL, pt. is afebrile H&PE are most consistent with noncompliance with medical treatment plan in addition to socioeconomic hardship. The patient is nontoxic in appearance. no evidence of acute abdomen on PE. ORDERS: -Reviewed labs and imaging from earlier today which were unremarkable and only showed evidence of uterine fibroid that is 3 cm and a right ovarian cyst. PT HAD NEGATIVE URINE HCG HERE IN THE ED THIS AM , NO NEED TO REPEAT AT THIS TIME> ED INTERVENTIONS: - Morphine 4mg IV -Zofran 4mg IV - Toradol IV - Pepcid PO -I do not identify an emergent condition at this time. With current presentation, pt. is stable for close outpatient follow up and conservative treatment. D/w pt. to return promptly to ED with worsening or new symptoms.- Pt. verbalizes' understanding and agreement with proposed treatment plan. The patient was no longer actively vomiting after ED interventions. She was able to tolerate oral medications and intake without incidence. I discussed with this patient that at this time she does not meet admission criteria. Pt. asked several times if she can "just sleep here until the morning" . -I do not identify an emergent condition at this time. With current presentation, pt. is stable for close outpatient follow up and conservative treatment. D/w pt. to return promptly to ED with worsening or new symptoms.- DISCHARGE: At this time pt. is stable for d/c to home. Will provide printed patient care instructions, and any necessary prescriptions. Care plan and follow up instructions have been discussed with the patient prior to discharge. (Erica Obregon) ER Course Patient evaluated at bedside @ 2200 and again @ 2230 She was sleeping comfortably on my arrival, after being medicated by LEEROY Obregon. Abdominal examination was soft and non tender without CVA TTP. Negative murphys sign. No guarding or rebound. Vitals are all within normal limits. I did review her chart and labs from ED visit this morning which had negative CBC CMP UA Upreg. Pelvic US was performed and re-demonstrated uterine fibroid and simple R ovarian cyst without torsion. Low suspicion for ovarian torsion, as she is mostly texting on her phone or sleeping comfortably. Patient states this is her normal fibroid pain and has follow up with gynecology at [facility] on Sunday (1 day). Patient had mentioned that she does not have money to pay for pain medications so I offered social work consult to help obtain resources for prescriptions for her fibroid pain. I also encouraged her to continue to see her DEPUTY SHERIFF GENERALIST specialist at [facility]. Patient refused social work consult and is calling her mother to obtain a ride home. (Jenae Monzon D.O.) Last Vital Signs Date Time Temp Pulse Resp B/P (MAP) Pulse Ox O2 Delivery O2 Flow Rate FiO2 02/14/20 18:55 98.4 02/14/20 17:51 74 23 154/102 98 Room Air 02/14/20 17:51 98 (Erica Obregon) Reevaluation Time: 22:30 Status: improved (Jenae Monzon D.O.) Disposition: HOME, SELF-CARE Admit Decision Time: 22:30 (Jenae Monzon D.O.) Condition: Stable Referrals: NOT CHOSEN [facility],REFERRING (PCP) Patient Instructions: Uterine Fibroids Additional Instructions: Take previously prescribed medications as directed. Follow up with a DEPUTY SHERIFF GENERALIST within 3-5 days, even if your symptoms have resolved. Return sooner to ED if new symptoms occur, or current symptoms become worse. - Please note that this Emergency Department Report was dictated using [employer] print operator technology software, occasionally this can lead to erroneous entry secondary to interpretation by the dictation equipment. Erica Obregon Feb 14, 2020 19:35 Jenae Monzon D.O. Feb 15, 2020 00:32
[2020-02-14] MEDS ORDERED: Ketorolac 30mg Inj IV ONE ×3 (19:45→21:30)
[2020-02-14 21:20] VITALS: BP 147/87
[2020-02-14] MEDS ORDERED: HYDROmorphone 1mg/ml Carpuject IM ONE (23:30)
[2020-02-14] MEDS ORDERED: Promethazine 50mg/ml Inj IM ONE (23:30)
[2020-02-14 23:45] VITALS: BP 142/73
[2020-02-15 01:30] VITALS: BP 139/74
== END 2020-02-14 22:20 | disposition home or self-care (01) ==
LOC: EDBD 17:44 → EMR 18:46
DX: R10.2 Pelvic and perineal pain (principal); D25.9 Leiomyoma of uterus, unspecified; N83.201 Unspecified ovarian cyst, right side; I10 Essential (primary) hypertension; Z86.73 Personal history of transient ischemic attack (TIA), and cerebral infarction without residual deficits
CPT/HCPCS: 96372; 96374; 96375; 96376; J1170; J1885; J2270; J2405; J2550; Z7502; 99284

== ENCOUNTER 2020-03-23 07:18 | Emergency (ER) | payer MEDICAID ==
[~2020-03-23] VITALS: Ht 170.2 cm; Wt 99.8 kg
[2020-03-23 07:23] VITALS: BP 142/78
--- NOTE | 2020-03-23 07:28 | NUR ---
ED Nurse Note: Patient brought in by ambulance RA # [id number] from home c/o intermittent vaginal bleed and abd pain since 99. Pt stated was passing large clots,has cramping like pain in lower abd. Denies , denies menstrual cycle. hx fibroids Patient presented AAO x4, VSS at this time.
[2020-03-23] MEDS ORDERED: Morphine Sulfate 4mg/ml Inj (IV USE ONLY) IVP ONE ×2 (07:45→09:30)
--- NOTE | 2020-03-23 08:01 | NUR ---
ED Nurse Note: US by bed side
[2020-03-23 08:18] LABS: APPEARANCE,URINE SLIGHTLY CLOUDY; BILIRUBIN, URINE NEGATIVE (NEGATIVE); EOSINOPHILS % (AUTO) 0.1 % (0.0-3.0); GLUCOSE, URINE (UA) NEGATIVE (NEGATIVE); HEMOGLOBIN 12.7 G/DL (12.0-16.0); KETONES,URINE NEGATIVE (NEGATIVE); LEUKOCYTE ESTERASE ,URINE 1+ (NEGATIVE); LYMPHOCYTES % (AUTO) 25.5 % (20.0-45.0); MEAN CORPUSCULAR VOLUME 89 FL (80-99); MONOCYTES % (AUTO) 5.3 % (1.0-10.0); NEUTROPHILS % (AUTO) 68.2 % (45.0-75.0); NITRITE,URINE NEGATIVE (NEGATIVE); PH,URINE 6 (4.5-8.0); PLATELET COUNT 324 K/UL (150-450); PROTEIN,URINE 2+ (NEGATIVE); RED BLOOD COUNT 4.47 M/UL (4.20-5.40); RED CELL DISTRIBUTION WIDTH 15.2 % (11.6-14.8); UROBILINOGEN,URINE NORMAL MG/DL (0.0-1.0)
[2020-03-23 08:28] LABS: ANION GAP 7 mmol/L (5-15); BLOOD UREA NITROGEN 8 mg/dL (7-18); CALCIUM 9.8 MG/DL (8.5-10.1); CARBON DIOXIDE 30 MMOL/L (21-32); CHLORIDE 103 MMOL/L (98-107); CREATININE 0.8 MG/DL (0.55-1.30); POTASSIUM 3.9 MMOL/L (3.5-5.1); SODIUM 140 MMOL/L (136-145)
[2020-03-23 08:33] LABS: ALANINE AMINOTRANSFERASE 14 U/L (12-78); ALBUMIN 3.8 G/DL (3.4-5.0); ALBUMIN/GLOBULIN RATIO 0.8 (1.0-2.7); ALKALINE PHOSPHATASE 61 U/L (46-116); ASPARTATE AMINO TRANSFERASE 17 U/L (15-37); BILIRUBIN,TOTAL 0.5 MG/DL (0.2-1.0)
[2020-03-23 08:35] LABS: COLOR,URINE PALE YELLOW
--- NOTE | 2020-03-23 09:44 | Emergency Room Report ---
History of Present Illness General Chief Complaint: Female Urogenital Problems Source: Patient Present Illness HPI 29-year-old female presents for evaluation. Brought in by EMS from home. Vaginal bleeding abdominal pain since this last night. 10 out of 10, dull, nonradiating. History of fibroids. States that she has been seen here many times for this. Is trying to schedule a hysterectomy but unable to because of Covid. No other aggravating relieving factors. Denies any other associated symptoms Allergies: Coded Allergies: No Known Allergies (Unverified , 08/05/19) COVID-19 Screening Contact w/high risk pt: No Recent Travel to affected area: No Experienced COVID-19 symptoms?: No COVID-19 Testing performed [employer]: No Patient History Past Medical History: HTN Past Surgical History: none Pertinent Family History: none Social History: Denies: smoking, alcohol use, drug use Now: No Immunizations: UTD Reviewed Nursing Documentation: PMH: Agreed; PSxH: Agreed Nursing Documentation-PMH Hx Hypertension: Yes Hx Cerebrovascular Accident: Yes Review of Systems All Other Systems: negative except mentioned in HPI Physical Exam Vital Signs Date Time Temp Pulse Resp B/P (MAP) Pulse Ox O2 Delivery O2 Flow Rate FiO2 03/23/20 07:12 99.1 100 20 142/78 (99) 96 Room Air Sp02 EP Interpretation: reviewed, normal General Appearance: alert, GCS 15, non-toxic, mild distress, obese Head: normocephalic, atraumatic Eyes: bilateral eye normal inspection, bilateral eye PERRL ENT: hearing grossly normal, normal pharynx, no angioedema, normal voice Neck: full range of motion, supple/symm/no masses Respiratory: chest non-tender, lungs clear, normal breath sounds, speaking full sentences Cardiovascular #1: regular rate, rhythm, no edema Cardiovascular #2: 2+ carotid (R), 2+ carotid (L), 2+ radial (R), 2+ radial (L), 2+ dorsalis pedis (R), 2+ dorsalis pedis (L) Gastrointestinal: normal bowel sounds, soft, non-distended, no guarding, no ab ound, tenderness Rectal: deferred Genitourinary: normal inspection, no CVA tenderness Musculoskeletal: back normal, normal range of motion, gait/station normal, non- tender Neurologic: alert, motor strength/tone normal, oriented x3, sensory intact, responsive, speech normal Psychiatric: judgement/insight normal, memory normal, mood/affect normal, no suicidal/homicidal ideation Reflexes: 3+ bicep (R), 3+ bicep (L), 3+ tricep (R), 3+ tricep (L), 3+ knee (R), 3+ knee (L) Skin: no rash Lymphatic: no adenopathy Medical Decision Making Diagnostic Impression: Primary Impression: Fibroids Additional Impression: Pelvic pain ER Course Hospital Course 29-year-old female presents with pelvic pain. History of fibroids Differential diagnoses include: gastrits, gastroenterits, ectopic , ovarian torsion/cyst, UTI Clinical course Patient placed on stretcher in ED. After initial history and physical I ordered labs, IV fluids and pain meds and pelvic ultrasound. Labs-no leukocytosis, electrolytes okay, beta hCG negative, UA negative Pelvic ultrasound- fibroids unchanged from previous ultrasound I discussed findings with patient. Encouraged that given multiple visits to ED for pain control that she should strongly consider having a hysterectomy. States she will follow-up with her [employer]. I will provide her with short course of pain meds although patient has received multiple prescriptions in the past Diagnosis - fibroids, pelvic pain Stable and discharged to home with Rx thor [facility]. Followup with PMD/[employer]. Return to ED if symptoms recur or worsen Laboratory Tests Test 03/23/20 07:54 White Blood Count 8.0 K/UL (4.8-10.8) Red Blood Count 4.47 M/UL (4.20-5.40) Hemoglobin 12.7 G/DL (12.0-16.0) Hematocrit 40.0 % (37.0-47.0) Mean Corpuscular Volume 89 FL (80-99) Mean Corpuscular Hemoglobin 28.4 PG (27.0-31.0) Mean Corpuscular Hemoglobin Concent 31.7 G/DL (32.0-36.0) L Red Cell Distribution Width 15.2 % (11.6-14.8) H Platelet Count 324 K/UL (150-450) Mean Platelet Volume 6.8 FL (6.5-10.1) Neutrophils (%) (Auto) 68.2 % (45.0-75.0) Lymphocytes (%) (Auto) 25.5 % (20.0-45.0) Monocytes (%) (Auto) 5.3 % (1.0-10.0) Eosinophils (%) (Auto) 0.1 % (0.0-3.0) Basophils (%) (Auto) 1.0 % (0.0-2.0) Urine Color Pale yellow Urine Appearance Slightly cloudy Urine pH 6 (4.5-8.0) Urine Specific [place] 1.010 (1.005-1.035) Urine Protein 2+ (NEGATIVE) H Urine Glucose (UA) Negative (NEGATIVE) Urine Ketones Negative (NEGATIVE) Urine Blood 3+ (NEGATIVE) H Urine Nitrite Negative (NEGATIVE) Urine Bilirubin Negative (NEGATIVE) Urine Urobilinogen Normal MG/DL (0.0-1.0) Urine Leukocyte Esterase 1+ (NEGATIVE) H Urine RBC 2-4 /HPF (0 - 2) H Urine WBC 10-15 /HPF (0 - 2) H Urine Squamous Epithelial Cells Few /LPF (NONE/OCC) Urine Bacteria Occasional /HPF (NONE) Urine Mucus Few /LPF (NONE/OCC) H Urine HCG, Qualitative Negative (NEGATIVE) Sodium Level 140 MMOL/L (136-145) Potassium Level 3.9 MMOL/L (3.5-5.1) Chloride Level 103 MMOL/L (98-107) Carbon Dioxide Level 30 MMOL/L (21-32) Anion Gap 7 mmol/L (5-15) Blood Urea Nitrogen 8 mg/dL (7-18) Creatinine 0.8 MG/DL (0.55-1.30) Estimat Glomerular Filtration Rate > 60 mL/min (>60) Glucose Level 108 MG/DL (74-106) H Calcium Level 9.8 MG/DL (8.5-10.1) Total Bilirubin 0.5 MG/DL (0.2-1.0) Aspartate Amino Transf (AST/SGOT) 17 U/L (15-37) Alanine Aminotransferase (ALT/SGPT) 14 U/L (12-78) Alkaline Phosphatase 61 U/L (46-116) Total Protein 8.6 G/DL (6.4-8.2) H Albumin 3.8 G/DL (3.4-5.0) Globulin 4.8 g/dL Albumin/Globulin Ratio 0.8 (1.0-2.7) L Lipase 128 U/L (73-393) CT/MRI/US Diagnostic Results CT/MRI/US Diagnostic Results : Imaging Test Ordered: Pelvic US Impression Left lateral fibroid measuring 4.13 cm x 2.86 cm. Right ovarian cyst. Right ovary larger than left. Cervical nabothian cysts Last Vital Signs Date Time Temp Pulse Resp B/P (MAP) Pulse Ox O2 Delivery O2 Flow Rate FiO2 03/23/20 08:29 99.1 03/23/20 07:23 89 20 142/78 96 Room Air Status: improved Disposition: HOME, SELF-CARE Condition: Stable Scripts Ondansetron Odt* (ZOFRAN ODT*) 4 Mg Tab.rapdis 4 MG BC EVERY 6 HOURS PRN for Nausea & Vomiting, #20 TAB 0 Refills Prov: Car Branch MD 03/23/20 Hydrocodone Bit/Acetaminophen 5-325* (NORCO 5-325 TABLET*) 1 Each Tablet 1 TAB ORAL Q6H PRN for FOR PAIN, #12 TAB 0 Refills Prov: Car Branch MD 03/23/20 Referrals: NON PHYSICIAN (PCP) Car Branch MD Mar 23, 2020 09:44
[2020-03-23] MEDS ORDERED: Ketorolac 30mg Inj IV ONE (09:45)
[2020-03-23] MEDS ORDERED: Metoclopramide 10mg/2ml Inj IVP ONE (09:45)
[2020-03-23] MEDS ORDERED: ONDANSETRON ODT4 MG BC (10:11)
[2020-03-23] MEDS ORDERED: NORCO 5-325 TA1 EAC1 ORAL (10:11)
[2020-03-23 10:23] VITALS: BP 142/78
--- NOTE | 2020-03-23 13:59 | Diagnostic Imaging Report ---
Indication: Pelvic pain, heavy vaginal bleeding, negative test Technique: Transabdominal and transvaginal images of the pelvis. Doppler interrogation of the ovaries. Comparison: 02/12/2020 Findings: There is degenerative 7.7 cm in length. It demonstrates a 3.6 cm fundal fibroid. Endometrium is 4 mm thick. The right ovary demonstrates a 4 cm cyst. Both ovaries demonstrate normal Doppler signal left ovary is normal in size and configuration. Incidental finding of cervical nabothian cysts. The ovarian cyst is slightly larger Impression: Uterine fibroid, also previously described Enlarging but still benign appearing right ovarian cyst.
== END 2020-03-23 10:24 | disposition home or self-care (01) ==
LOC: EDBD 07:18 → EMR 07:45
DX: D25.9 Leiomyoma of uterus, unspecified (principal); R10.2 Pelvic and perineal pain; I10 Essential (primary) hypertension; Z86.73 Personal history of transient ischemic attack (TIA), and cerebral infarction without residual deficits
CPT/HCPCS: 36415; 76830; 76856; 80053; 81003; 81025; 83690; 85025; 87086; 96361; 96374; 96375; 96376; J1885; J2270; J2765; J7030; Z7502; 99284